=== PATIENT | male | born 1965 | race Two or more races ===

== ENCOUNTER → 2025-08-14 | Outpatient (CLI) | payer MEDICAID, SELFPAY ==
--- NOTE | 2025-08-14 15:18 | XR_ITS ---
Examination: Facial series 2 views TECHNIQUE: Denise lateral facial series Date and time:, August 14, 2025 1527 hours 2 views INDICATIONS: Foreign body exposure to the eyes this month FINDINGS: No opaque foreign body overlies the orbits Cranial vault patient was apparently intact IMPRESSION: No opaque foreign body overlies the orbits
== END | disposition home or self-care (01) ==
PROVIDERS: PCP Family Medicine; Referring Provider Radiology Diagnostic Radiology; Visit Provider Radiology Diagnostic Radiology
DX: Z01.89 Encounter for other specified special examinations (principal)
CPT/HCPCS: 70220

== ENCOUNTER → 2025-08-16 | Outpatient (CLI) | payer MEDICAID, SELFPAY ==
[2025-08-15 16:45] LABS: Basophils # (Auto) 0.1 Thou/mm3 (0.0-0.2); Basophils % (Auto) 1 % (0-2.5); Eosinophils # (Auto) 0.6 Thou/mm3 (0.0-0.5); Eosinophils % (Auto) 6 % (0-10); Hematocrit 48.5 % (41.0-53.0); Hemoglobin 16.6 g/dL (13.5-16.0); Immature Granulocytes Auto 0.02 Thou/mm3 (0.00-0.00); Lymphocytes # (Auto) 4.2 Thou/mm3 (1.0-4.8); Lymphocytes % (Auto) 42 % (10-50); Mean Corpuscular HGB Conc 34.2 g/dl (31.0-37.0); Mean Corpuscular Hemoglobin 31.4 pg (25.0-35.0); Mean Corpuscular Volume 92 fL (80-100); Monocytes # (Auto) 0.8 Thou/mm3 (0.0-0.8); Monocytes % (Auto) 8 % (0-12); Neutrophils # (Auto) 4.2 Thou/mm3 (1.8-7.7); Neutrophils % (Auto) 42 % (37-80); Nucleated Red Blood Cell # 0.00 Thou/mm3 (0.00-0.00); Nucleated Red Blood Cell % 0 /100 WBC (0); Platelet Count 229 Thou/mm3 (140-440); RDW Standard Deviation 39.6 fL (35.1-43.9); Red Blood Count 5.28 Miln/mm3 (4.50-5.90); White Blood Count 10.0 Thou/mm3 (3.8-10.6)
[2025-08-15 17:02] LABS: Alanine Aminotransferase 87 U/L (10-49); Albumin, Serum 4.1 gm/dL (3.5-5.0); Albumin/Globulin Ratio 1.5 (1.2-2.2); Alkaline Phosphatase 81 U/L (46-116); Anion Gap 12 (7-16); Aspartate Amino Transferase 63 U/L (0-34); BUN/Creatinine Ratio 7 Ratio (12-20); Bilirubin,Total 0.3 mg/dL (0.3-1.2); Blood Urea Nitrogen 8 mg/dL (9-23); Calcium 9.1 mg/dL (8.3-10.6); Calcium (Corrected) 9.1 mg/dL (8.5-10.1); Carbon Dioxide 26.5 mMol/L (20.0-31.0); Chloride 104 mMol/L (98-107); Creatinine (Component) 1.1 mg/dL (0.6-1.3); Globulin 2.8 gm/dL (2.3-3.5); Glucose 110 mg/dL (74-106); Osmolality,Calculated 282 (275-295); Potassium 4.2 mMol/L (3.4-5.1); Sodium 142 mMol/L (136-145); Total Protein 6.9 gm/dL (5.7-8.2); eGFR > 60 See Note
--- NOTE | 2025-08-16 07:30 | XR_ITS ---
Examination: MRI head orbits been Examinations: MRI Brain without intravenous contrast. 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 Sagittal sections, T1-weighted, TR 500, TE 14 Axial sections proton density and T2-weighted, TR 3,000, TE 34, TR 3,000, TE 91 Inversion recovery axial images, TR 9,260, TE 111, TI 2,500 Diffusion weighted images, axial sections, TR 4,800, TE 128, B value 1,000 Axial sections, ADC map, TR 4,800, TE 128. Contrast images have been obtained post intravenous 18 cc Gadolinium. Findings: Sellaturcica is not enlarged. The optic chiasm and infundibular stalk are not remarkable. Prepontine and interpeduncular cisterns are not enlarged. No localized enlargement of the medulla or shirley. Fourth ventricle and cerebellar tonsils normal in position. Chronic ethmoid maxillary antral sinusitis Subacute hemorrhage is not seen. Fourth ventricle is midline. Mass in the cerebellopontine angle region is not evident. 7th and 8th nerve complexes exhibits symmetry. Globes are symmetrical with no retro-orbital mass. Increased white matter signal not seen Marked abnormal signal in the retroareolar region right orbit on the PA contrast images with marked diffuse abnormal enhancement in the retro-orbital region right orbit surrounding the optic nerve and ophthalmic musculature Diffusion-weighted images demonstrateno focus of restricted diffusion. Impression: Marked abnormal signal occupying all of the retro-orbital region on the right with diffuse abnormal enhancement, the enhancing soft tissues surrounding the right optic nerve and all of the ophthalmic musculature This appearance is consistent with involvement by the patient's known lymphoma Recommend follow-up MRI brain images pre and postcontrast No disruption of the optic chiasm
== END | disposition home or self-care (01) ==
LOC: SMRI 07:19
PROVIDERS: Referring Provider Internal Medicine Hematology & Oncology; Visit Provider Internal Medicine Hematology & Oncology
DX: H57.9 Unspecified disorder of eye and adnexa (principal); C83.09 Small cell B-cell lymphoma, extranodal and solid organ sites
CPT/HCPCS: 36415; 70543; 80053; 85025

== ENCOUNTER → 2025-10-08 | Outpatient (CLI) | payer MEDICAID, SELFPAY ==
--- NOTE | 2025-10-08 09:30 | XR_ITS ---
EXAMINATION: PET/CT FUSION SKULL TO THIGH EXAM DATE AND TIME: October 08, 2025, 1105 hours INDICATIONS: Diagnosis right orbital lymphoma staging prior to treatment CTDI:vol (mGy) 7.81 DLP: (mGycm) 810.86 PROCEDURE: 13.2 mCi FDG was administered intravenously To allow for distribution and uptake of radiotracer, the patient was allowed to rest quietly in a shielded room. Imaging was performed on an integrated 16-slice PET/CT scanner, with scanning from the skull base to the mid thigh. Serum blood glucose at the time of the injection was measured 131 mg/dL. CT scanning was performed without oral or intravenous contrast material. FINDINGS: Head and Neck: Hypermetabolic retro-orbital right soft tissue mass lesion, 2.3 x 2.8 x 2.2 cm displacing the right optic globe anteriorly Mass does not extend into the ethmoid air cells or destroyed the bony rutledge of the orbit Parotid glands demonstrate nonspecific diffuse hypermetabolic activity as well as submandibular glands Chest: There is no kristy hypermetabolism in the chest. There are no pulmonary nodules. Abdomen and Pelvis: There is no kristy hypermetabolism in retroperitoneal or pelvic chains. The spleen is normal in size and FDG avidity. Musculoskeletal: Marrow uptake is within normal range. IMPRESSION: Hypermetabolic right retro-orbital soft tissue mass 2.3 x 2.8 x 2.2 cm producing right exophthalmos
== END | disposition home or self-care (01) ==
LOC: CDIM 09:19
PROVIDERS: PCP Family Medicine; Referring Provider Internal Medicine Hematology & Oncology; Visit Provider Internal Medicine Hematology & Oncology
DX: R22.0 Localized swelling, mass and lump, head (principal); H05.20 Unspecified exophthalmos; C83.09 Small cell B-cell lymphoma, extranodal and solid organ sites
CPT/HCPCS: 78815; A9552

== ENCOUNTER 2025-10-09 10:14 | Outpatient (RCR) | payer MEDICAID, SELFPAY ==
--- NOTE | 2025-10-09 12:03 | CTCCONSULT_ITS ---
[facility] [address] [place], [place] [address] Consultation Note Date: 10/09/2025 MR#: [id number] Name: CHERYL FRENCH : 1965 Dx: C85.11 Unsp B-cell lymphoma, lymph nodes of head, face, and neck Referring physician. Boogie Gonzalez MD Reason for consultation. Patient with small B-cell lymphoma right orbital region referred for radiation oncology consultation. History of Present Illness: Patient is a 60-year-old gentleman who developed double vision disturbance particularly when moving up and down or sideways, initially thought to be related to work-related injury 3 years ago. Further workup revealed right orbital mass causing proptosis and underwent excision of the mass at [facility].04/10/2025 revealing small B-cell lymphoma lambda predominant plasma cells. Subsequent MRI head brain and orbits 08/16/2025 revealed marked abnormal signal occupying all of retro-orbital region on the right with diffuse abnormal enhancement enhancing soft tissue surrounding the right optic nerve and all the ophthalmology musculature. There was no other involvement of intracranial structures. Had PET/CT on 10/08/2025 revealing hypermetabolic right retro-orbital soft tissue mass 2.3 x 2.8 x 2.2 cm producing right exophthalmos. There was no apparent involvement elsewhere. Patient sought medical oncologist Dr. Gonzalez and chemotherapy was discussed with patient. Patient declined chemo if radiation therapy had a chance of working. Patient now referred for radiation oncology consultation. Past Medical History: Atrial fibrillation; left inguinal hernia surgery right thumb surgery Meds [facility] [place] for atrial fibrillation Social History: Smokes 1 pack every 3 days is a social drinker; works at the [employer] Review of Systems: Has visual difficulty as noted in HPI Physical Exam: General: Well-appearing gentleman no acute distress HEENT: Right eye proptosis noted; no oral lesion no cervical or cervical adenopathy CV: Chest clear station heart regular rate and rhythm ABD: Soft no organomegaly or tenderness EXT: No signs of clubbing or edema. Assessment:1. Right orbital mass biopsy reveals small B-cell lymphoma. 2. Double vision and R eye proptosis of longstanding 3. No sign of extension beyond the right orbital region into the brain or elsewhere on MRI and PET studies. 4. Discussion about possible chemo was made with medical oncologist and patient prefers to go with radiation only. 5. Dose of 2400 to 2800 cGy using modern VMAT technique was discussed with patient. Side effects explained. 6. Thank you very much for allowing me to evaluate and manage this patient Cc: Boogie Gonzalez MD Electronically signed by: Delfino Olsen MD, DABR 10/09/2025 12:00 PM
--- NOTE | 2025-10-09 12:08 | CTCTXPLN_ITS ---
[facility] [address] [place], [place] [address] Physician Clinical Treatment Planning Note Date of Service: 10/09/2025 Name: CHERYL FRENCH : 1965 The patient has agreed to proceed with Radiation therapy. Tests and supporting medical records were interpreted to assist in defining the tumor location and extent of disease. Further imaging will be necessary to contour and delineate the volume to which the XRT will be provided. A. Treatment Intent: Curative B. C. Modality: 6 MV D. Requested Technique: VMAT E. Treatment Site: Right orbit F. Critical structures to be contoured on plan: G. In order to accomplish this plan, I am ordering/Prescribing the followin. Simulations (s) will be performed to accomplish a reproducible treatment position, to determine optimal treatment portals/beam arrangements, to design beam modifying devices and verify treatment portals on patient prior to the commencement of Radiation Therapy. Brain 2. Devices; for immobilization and beam shaping: Aquaplast 3. CT Guidance for placement of XRT lindo Scan area: 4. Portal images Frequency: 5. Invivo transit dose measurement once per week on all VMAT patients. 6. Special Physics Consult Requested for: 7. Other requests: H. Dose Objectives: Curative Electronically signed by: Delfino Olsen M.D. 10/09/2025 12:06 PM
--- NOTE | 2025-10-09 12:11 | CTCTXPLNST_ITS ---
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 Pt Treatment Intent: curative palliative other: Stage: Procedure CPT # Ordered Spec. Procedure 81281 Cummings Complex (set-up) 78365 R orbit 1 Cummings Simple 88354 IMRT Plan 44562 1 MLC Devices VMAT 00964 3 Cummings 3 D 16978 TRTMT dev Complex 52873 Aqua Plast 1 TRTMT dev simple 49029 Basic Enrique 14548 6 Special Dosimetry 09917 Spec Physics 34684 Port Films 29467 SRS Cranial/1FX 69893 SBR 5 FX or Less /ex: 5 = 5 fx 03742 IMRT Simple 62784 2700 15 IMRT Complex 82194 IGRT 34127 15 Rad del AlphaStripe 04-30 11235 Rad del AlphaStripe 10-09 40822 Cont Med Physics 39870 3 Treatment Planning 31512 1 Weekly Evaluation 18330 3 Rad del AlphaStripe 20 mev 28054 Special Port Plan 75174 TRTMT dev inter 10084 Isodose Complex 83871 Isodose simple 47536 Resp Motion Mgmt Simulation 41813 Placement of Fiducial Markers 40290 Electronically Signed By: Delfino Olsen MD, CLAUDER 10/09/2025 12:09 PM
== END 2025-10-20 23:59 | disposition home or self-care (01) ==
LOC: SCTC 10:14
PROVIDERS: PCP Family Medicine; Referring Provider Internal Medicine Hematology & Oncology; Visit Provider Radiology Therapeutic Radiology
DX: C83.01 Small cell B-cell lymphoma, lymph nodes of head, face, and neck (principal); H53.2 Diplopia; H05.20 Unspecified exophthalmos
CPT/HCPCS: 99213; G0463

== ENCOUNTER 2025-11-20 08:34 | Outpatient (RCR) | payer MEDICAID, SELFPAY ==
--- NOTE | 2025-10-24 09:38 | CTCSNOTE_ITS ---
[facility] [address] [place], [place] [address] [place] Simulation Note Date: 10/24/2025 MR# [id number] Name: CHERYL FRENCH : 1965 (A) DIAGNOSIS: C85.11 Unsp B-cell lymphoma, lymph nodes of head, face, and neck (B) Patient was placed in supine position and used aquaplast for immobilization purposes. (C) CT slices included orbits (D) VMAT Will be needed for maximum sparing of adjacent normal critical structures. (E) Patient tolerated the simulation well and left the room in good condition. Electronically signed by: Delfino Olsen MD, MERCEDEZ 10/24/2025 9:36 AM
== END 2025-11-20 23:59 | disposition home or self-care (01) ==
LOC: SCTC 08:34
PROVIDERS: PCP Family Medicine; Referring Provider Family Medicine; Visit Provider Radiology Therapeutic Radiology
DX: Z51.0 Encounter for antineoplastic radiation therapy (principal); C83.01 Small cell B-cell lymphoma, lymph nodes of head, face, and neck; H05.20 Unspecified exophthalmos; H53.2 Diplopia; H00.015 Hordeolum externum left lower eyelid
CPT/HCPCS: 77014; 77290; 77300; 77301; 77334; 77336; 77338; 77385; 77387; 77407